=== PATIENT | female | born 1950 | race Caucasian/White ===

== ENCOUNTER 2021-06-18 12:22 | Inpatient (IN) | payer MEDICARE ==
[~2021-06-18] VITALS: Ht 177.8 cm; Wt 67.2 kg
[2021-06-18 13:39] LABS: Hematocrit 37.8 % (36.0-46.0); Hemoglobin 13.1 g/dL (12.2-16.2); Mean Corpuscular Hemoglobin 36.7 pg (28.0-32.0); Mean Corpuscular Hgb Conc. 34.7 g/dL (32.0-36.0); Mean Corpuscular Volume 105.7 fL (80.0-100.0); Red Blood Cells 3.58 10^6/uL (4.0-5.20); White Blood Cell 2.6 10^3/uL (4.4-10.8)
[2021-06-18 13:42] LABS: Basophils % (manual) 0 (0.0-2.0); Blast Cells 0; Metamyelocytes % 0; Myelocytes % 0; Promyelocytes % 0; Reactive Lymphocytes 0
[2021-06-18] MEDS ORDERED: MORPHINE SULFATE 4 MG/ML SYR/VIAL IV ONE (13:45)
[2021-06-18] MEDS ORDERED: ONDANSETRON HCL 4 MG/2 ML VIAL IV ONE (13:45)
[2021-06-18 13:55] LABS: INR 1.17 (0.9-1.15); Partial Thromboplastin Time 26.3 sec (23.6-33.0)
[2021-06-18 14:03] LABS: Albumin 3.8 g/dL (3.4-5.0); BUN/Creatinine Ratio 11.3
[2021-06-18 14:06] LABS: Bilirubin, Total 1.2 mg/dL (0.2-1.0); Total Protein 7.6 g/dL (6.4-8.2)
[2021-06-18] MEDS ORDERED: ACETAMINOPHEN 325 MG TAB PO PRN (15:30)
[2021-06-18] MEDS ORDERED: NITROGLYCERIN 0.4 MG SL TAB SL PRN (15:30)
[2021-06-18] MEDS ORDERED: DOCUSATE SOD 100 MG CAP PO PRN (15:30)
[2021-06-18] MEDS ORDERED: MORPHINE SULFATE INJECTION 2 MG/ML SYRG IV PRN (15:30)
[2021-06-18] MEDS: D5W/SOD CHL 0.45% 1,000 ML IV SCH (15:30)
[2021-06-18] MEDS: HYDROcodone-ACET 5/325MG TAB PO PRN ×2 (16:31→20:24)
[2021-06-18 16:34] VITALS: BP 140/79
[2021-06-18 16:38] LABS: Band Neutrophils % (manual) 7; Eosinophils % (manual) 1 (0-7); Lymphocytes % (manual) 18 (10.0-50.0); Monocytes % (manual) 9 (0-12)
[2021-06-18 16:52] VITALS: BP 140/76
[2021-06-18] MEDS ORDERED: LEVO125T PO (18:01)
[2021-06-18] MEDS: ONDANSETRON HCL 4 MG/2 ML VIAL IV PRN (19:45)
[2021-06-18] MEDS: SODIUM CHLOR 0.9% PF (SALINE LOCK) 10ML VIAL/SYR IV SCH (21:24)
[2021-06-18] MEDS: ASCORBIC ACID 500 MG TAB PO SCH (21:24)
[2021-06-18 22:00] VITALS: BP 155/88
[2021-06-19] MEDS: ONDANSETRON HCL 4 MG/2 ML VIAL IV PRN ×2 (02:26→20:36)
[2021-06-19] MEDS: HYDROcodone-ACET 5/325MG TAB PO PRN ×4 (02:29→22:42)
[2021-06-19] MEDS: D5W/SOD CHL 0.45% 1,000 ML IV SCH ×2 (04:50→18:10)
[2021-06-19 04:59] VITALS: BP 145/86
[2021-06-19] MEDS: SODIUM CHLOR 0.9% PF (SALINE LOCK) 10ML VIAL/SYR IV SCH ×3 (06:00→20:37)
[2021-06-19] MEDS: LEVOTHYROXINE SODIUM 50 MCG TAB PO SCH (07:00)
[2021-06-19 07:40] LABS: Potassium 3.4 mmol/L (3.5-5.1)
[2021-06-19 07:49] LABS: Hemoglobin 11.8 g/dL (12.2-16.2)
[2021-06-19 07:50] LABS: Albumin 3.7 g/dL (3.4-5.0); BUN/Creatinine Ratio 9.8; Bilirubin, Total 2.1 mg/dL (0.2-1.0); Calcium 8.2 mg/dL (8.5-10.1); Total Protein 7.1 g/dL (6.4-8.2)
[2021-06-19 07:52] LABS: Hematocrit 32.8 % (36.0-46.0); Mean Corpuscular Hemoglobin 37.6 pg (28.0-32.0); Mean Corpuscular Volume 104.5 fL (80.0-100.0); Red Blood Cells 3.13 10^6/uL (4.0-5.20); Red Cell Distribution Width 13.7 % (11.8-14.3); White Blood Cell 2.4 10^3/uL (4.4-10.8)
[2021-06-19 08:00] LABS: Band Neutrophils % (manual) 0; Basophils % (manual) 0 (0.0-2.0); Blast Cells 0; Eosinophils % (manual) 0 (0-7); Metamyelocytes % 0; Myelocytes % 0; Promyelocytes % 0; Reactive Lymphocytes 0
[2021-06-19] MEDS ORDERED: ceFAZolin 1GM/50ML 100 ML IV ONE (08:43)
[2021-06-19] MEDS ORDERED: BUPIVACAINE 0.25% INJ 50ML VIAL ONE (08:49)
[2021-06-19] MEDS ORDERED: LIDOCAINE 1% HCL (LOCAL ANESTH.) INJ 20ML MDV ONE (08:49)
[2021-06-19 08:56] LABS: Lymphocytes % (manual) 20 (10.0-50.0); Monocytes % (manual) 11 (0-12)
[2021-06-19 09:00] VITALS: BP 116/67
[2021-06-19] MEDS ORDERED: MIDAZOLAM HCL 2MG/2ML 2ml VIAL (1mg/ml) ONE (09:08)
[2021-06-19] MEDS ORDERED: fentaNYL CITRATE 100 MCG/2 ML VL ONE (09:08)
[2021-06-19] MEDS: MULTIPLE VITAMIN TAB PO SCH (10:00)
[2021-06-19] MEDS: ENOXAPARIN SOD 40 MG/0.4 ML SYRINGE SC SCH (10:00)
[2021-06-19] MEDS: ASCORBIC ACID 500 MG TAB PO SCH ×2 (10:00→20:37)
[2021-06-19] MEDS: ZINC SULFATE 220mg CAP or TAB PO SCH (10:00)
[2021-06-19] MEDS ORDERED: ONDANSETRON HCL 4 MG/2 ML VIAL ONE (10:16)
[2021-06-19] MEDS ORDERED: HYDROmorphone HCL 2 MG/ML VL IV PRN (10:30)
[2021-06-19] MEDS: HYDROmorphone HCL 2 MG/ML VL IV PRN ×2 (10:56→11:15)
[2021-06-19 13:00] VITALS: BP 130/74
[2021-06-19] MEDS: ceFAZolin 1GM/50ML 50 ML IV SCH (13:00)
[2021-06-19] MEDS: MORPHINE SULFATE 4 MG/ML SYR/VIAL IV PRN ×2 (15:05→20:37)
[2021-06-19 17:00] VITALS: BP 123/77
[2021-06-19 21:55] VITALS: BP 119/67
[2021-06-20] MEDS: ceFAZolin 1GM/50ML 50 ML IV SCH (03:41)
[2021-06-20 05:00] VITALS: BP 127/73
[2021-06-20 06:23] LABS: Red Cell Distribution Width 13.6 % (11.8-14.3)
[2021-06-20 06:25] LABS: Hematocrit 29.9 % (36.0-46.0); Hemoglobin 10.7 g/dL (12.2-16.2); Mean Corpuscular Hemoglobin 37.7 pg (28.0-32.0); Mean Corpuscular Hgb Conc. 35.8 g/dL (32.0-36.0); Mean Corpuscular Volume 105.2 fL (80.0-100.0); Red Blood Cells 2.84 10^6/uL (4.0-5.20); White Blood Cell 3.2 10^3/uL (4.4-10.8)
[2021-06-20 06:37] LABS: Band Neutrophils % (manual) 0; Basophils % (manual) 0 (0.0-2.0); Blast Cells 0; Eosinophils % (manual) 0 (0-7); Metamyelocytes % 0; Myelocytes % 0; Promyelocytes % 0; Reactive Lymphocytes 0
[2021-06-20 06:38] LABS: Albumin 3.4 g/dL (3.4-5.0); Potassium 3.4 mmol/L (3.5-5.1)
[2021-06-20 06:42] LABS: BUN/Creatinine Ratio 5.9; Total Protein 6.7 g/dL (6.4-8.2)
[2021-06-20] MEDS: SODIUM CHLOR 0.9% PF (SALINE LOCK) 10ML VIAL/SYR IV SCH (07:15)
[2021-06-20] MEDS: LEVOTHYROXINE SODIUM 50 MCG TAB PO SCH (07:15)
[2021-06-20] MEDS: D5W/SOD CHL 0.45% 1,000 ML IV SCH (07:30)
[2021-06-20] MEDS: HYDROcodone-ACET 5/325MG TAB PO PRN (08:10)
[2021-06-20 09:00] VITALS: BP 146/82
[2021-06-20 09:32] LABS: Lymphocytes % (manual) 19 (10.0-50.0); Monocytes % (manual) 9 (0-12)
[2021-06-20] MEDS: ENOXAPARIN SOD 40 MG/0.4 ML SYRINGE SC SCH (10:00)
[2021-06-20] MEDS: ASCORBIC ACID 500 MG TAB PO SCH (10:00)
[2021-06-20] MEDS: ZINC SULFATE 220mg CAP or TAB PO SCH (10:00)
[2021-06-20] MEDS: MULTIPLE VITAMIN TAB PO SCH (10:00)
[2021-06-20 12:28] VITALS: BP 117/65
[2021-06-20 13:42] VITALS: BP 117/65
== END 2021-06-20 14:20 | disposition home or self-care (01) | DRG 494 ==
LOC: ER 12:22 → EDBD 12:22 → OVERFLOW 15:28 → WEST WING 16:05
PROVIDERS: ADMIT Nurse Practitioner Family; ATTEND Nurse Practitioner Family
PROC: 0QSG04Z Reposition Right Tibia with Internal Fixation Device, Open Approach (ICD-10-PCS; principal; 2021-06-19 09:08)
DX: S82.851A Displaced trimalleolar fracture of right lower leg, initial encounter for closed fracture (principal); D72.819 Decreased white blood cell count, unspecified; D75.89 Other specified diseases of blood and blood-forming organs; E03.9 Hypothyroidism, unspecified; E87.6 Hypokalemia; M19.90 Unspecified osteoarthritis, unspecified site; Z20.822 Contact with and (suspected) exposure to COVID-19; R74.01 Elevation of levels of liver transaminase levels; W01.0XXA Fall on same level from slipping, tripping and stumbling without subsequent striking against object, initial encounter; Y92.009 Unspecified place in unspecified non-institutional (private) residence as the place of occurrence of the external cause; Z80.9 Family history of malignant neoplasm, unspecified; Z82.3 Family history of stroke; Y93.89 Activity, other specified; Y99.8 Other external cause status
CPT/HCPCS: 36415; 71045; 73600; 73610; 76000; 80053; 85007; 85027; 85610; 85730; 86850; 86900; 86901; 93005; 96374; 96375; G0378; J0690; J2001; J2250; J2405; J3490